=== PATIENT | female | born 1965 | race Caucasian/White ===

== ENCOUNTER 2016-05-30 10:50 | Emergency (ER) | payer BC ==
[~2016-05-30] VITALS: Ht 170.2 cm; Wt 71.0 kg
[~2016-05-30 10:50] MED LIST: NORV2.5T11 PO; TOPR25TA2 PO
[2016-05-30 10:59] VITALS: BP 143/102; PULSE 95; RESP 16
[2016-05-30 11:20] VITALS: RESP 16; TEMP 98.5; O2SAT 98
[2016-05-30] MEDS ORDERED: TOPR25TA PO (11:32)
[2016-05-30] MEDS ORDERED: AMLO5 PO (11:32)
[2016-05-30] MEDS ORDERED: TRIA.1%T TOPICAL (11:37)
[2016-05-30] MEDS ORDERED: PRED20 PO (11:37)
--- NOTE | 2016-05-30 11:38 | PD ---
HPI Chief Complaint: Skin Problem Time Seen by Provider: 11:34 Travel History International Travel<30 days: No Contact w/Intl Traveler<30days: No Traveled to known affect area: No History of Present Illness HPI 50-year-old female with past medical history of hypertension presents to the emergency department for evaluation of rash to her bilateral elbows that started yesterday morning. She denies any exposure to plants or new substances. She states is itchy and not painful. No fevers or chills. No other complaints. PFSH Past Medical History Asthma: Yes ( A CHILD) Blood Disorders: No Anxiety: Yes Cancer: No Cardiac Catheterization: No Cardiovascular Problems: Yes (htn on meds) High Cholesterol: No Chest Pain: Yes Congestive Heart Failure: No Diabetes: No Diminished Hearing: No Endocrine: No Genitourinary: No Hypertension: Yes Immune Disorder: No Musculoskeletal: No Neurologic: No Reproductive: No Respiratory: Yes Immunizations Current: Yes Myocardial Infarction: No ?: Not LMP: 2 weeks ago Menopausal: No Past Surgical History Coronary Artery Bypass Graft: No Pacemaker: No Other Surgery: Yes (tendon repair right wrist) Social History Alcohol Use: Yes (OCCASIONAL) Tobacco Use: No (former) Substance Use: No Allergies-Medications (Allergen,Severity, Reaction): Coded Allergies: Tramadol (Verified Allergy, Severe, 05/30/16) Augmentin (Verified Allergy, Mild, TING[place], 05/30/16) Reported Meds & Prescriptions Reported Meds & Active Scripts Active Reported Norvasc (Amlodipine Besylate) 5 Mg Tab 5 Mg PO DAILY Toprol XL (Metoprolol Succinate) 25 Mg Tab 25 Mg PO BID Review of Systems Except as stated in HPI: all other systems reviewed are Neg Physical Exam Narrative GENERAL: Well-developed well-nourished female patient ambulatory. Afebrile., SKIN: Warm and dry. Patient has erythematous vesicles noted to bilateral posterior elbows. No surrounding erythema or warmth. No drainage. HEAD: Normocephalic. Atraumatic. EYES: No scleral icterus. No injection or drainage. NECK: Supple, trachea midline. No JVD or lymphadenopathy. CARDIOVASCULAR: Regular rate and rhythm without murmurs, gallops, or rubs. RESPIRATORY: No accessory muscle use. GASTROINTESTINAL: Abdomen soft, non-tender, nondistended. MUSCULOSKELETAL: No cyanosis, or edema. Patient has full flexion and extension of bilateral elbows. Data Data Last Documented VS Vital Signs Date Time Temp Pulse Resp B/P Pulse Ox O2 Delivery O2 Flow Rate FiO2 05/30/16 11:20 98.5 16 98 Room Air 05/30/16 10:59 95 143/102 [facility] Medical Decision Making Medical Screen Exam Complete: Yes Emergency Medical Condition: Yes Medical Record Reviewed: Yes Differential Diagnosis Contact dermatitis versus cellulitis versus urticaria versus insect bites Narrative Course 50-year-old female presents to the emergency department for evaluation of rash to her bilateral elbows that started yesterday morning. Physical exam is consistent with a contact dermatitis. Patient is given prednisone 60 mg by mouth in the emergency department. She'll be discharged prescription for triamcinolone cream and prednisone. She is instructed to follow up with primary care physician. She is return for any acute worsening of symptoms. Patient is agreeable to this plan. Diagnosis Primary Impression: Contact dermatitis Qualified Code: L24.9 - Irritant contact dermatitis, unspecified trigger Referrals: Primary Care Physician call for appointment Patient Instructions: Contact Dermatitis (ED), General Instructions Additional Instructions: Take prednisone as instructed. Start this tomorrow. Apply triamcinolone cream as directed. Follow-up with your primary care physician. Return to the emergency department for any acute worsening of symptoms. Med/Other Pt SpecificInfo: Prescription(s) given Scripts Triamcinolone Topical 0.1% Cream1 Applic TOPICAL BID #1 TUBE Ref 0 Prov:Kelly Doan 05/30/16 Prednisone 20 Mg Tab40 Mg PO DAILY 4 Days Ref 0 Prov:Kelly Doan 05/30/16 Disposition: 01 DISCHARGE HOME Condition: Stable Kelly Doan May 30, 2016 11:38
[2016-05-30] MEDS ORDERED: predniSONE 20 MG TAB PO ONE (11:45)
== END 2016-05-30 11:42 | disposition home or self-care (01) ==
LOC: PHEFT 10:50
DX: L24.9 Irritant contact dermatitis, unspecified cause (principal); I10 Essential (primary) hypertension; F41.9 Anxiety disorder, unspecified; Z87.891 Personal history of nicotine dependence
CPT/HCPCS: 99282; J7512